=== PATIENT | female | born 1960 | race Caucasian/White ===

== ENCOUNTER 2019-09-20 07:43 | Outpatient (CLI) | payer OTHER, SELFPAY ==
--- NOTE | ~2019-09-20 | MM_ITS ---
EXAMINATION: MM screening [facility] BI w vy HISTORY: Screening mammogram, history of right breast cancer TECHNIQUE: Craniocaudal and mediolateral oblique 3-D tomosynthesis images were obtained and synthetic 2-D images were generated. CAD analysis was submitted and interpreted. COMPARISON: 09/16/2018, 09/13/2017, 09/02/2016 BREAST PARENCHYMAL COMPOSITION: There are scattered areas of fibroglandular density. FINDINGS: Stable lumpectomy changes are present in the upper outer quadrant of the right breast. Ther e is no evidence of suspicious mass, calcification, or architectural distortion to suggest malignancy in either breast. There has been no suspicious interval change. IMPRESSION: 1. No mammographic evidence of malignancy. 2. Recommend routine screening mammography in one year. BI-RADS Category 2: Benign finding(s). Reviewed, dictated and finalized at location A.
== END 2019-09-20 07:44 | disposition home or self-care (01) ==
LOC: ANHIMG 07:47
PROVIDERS: PCP Family Medicine; Visit Provider Family Medicine
DX: Z12.31 Encounter for screening mammogram for malignant neoplasm of breast (principal)
CPT/HCPCS: 77063; 77067

== ENCOUNTER 2020-05-26 16:32 | Emergency (ER) | payer OTHER, SELFPAY ==
[2020-05-26 16:33] VITALS: BP 148/79; PULSE 81; RESP 18; TEMP 36.3; O2SAT 100
--- NOTE | 2020-05-26 17:17 | ED.WOUNDLAC ---
HPI - Wound/Laceration General Chief Complaint: Wound/Laceration Stated Complaint: laceration to left 2nd finger Time Seen by Provider: 05/26/20 16:58 Source: patient Mode of arrival: ambulatory Limitations: no limitations History of Present Illness HPI narrative: 60-year-old lady comes into the emergency department today with complaints of a finger laceration. Patient states that she was trying to cut some fat off of a steak when the knife slipped and got her left index finger. States that her sensation is still intact, denies any further injuries. Patient states that her tetanus is up-to-date as she is fairly certain she has had it within the last 6 to 7 years. Related Data Allergies Allergy/AdvReac Type Severity Reaction Status Date / Time No Known Allergies Allergy Unverified 05/26/20 16:35 Review of Systems Review of Systems: Narrative: CONSTITUTIONAL: Denies fever, chills, or sweats. EYES: Denies visual changes, redness, or discharge. ENT: Denies rhinorrhea, congestion, sore throat, or otalgia. CARDIOVASCULAR: Denies chest pain, palpitations, or edema. RESPIRATORY: Denies cough or dyspnea. GASTROINTESTINAL: Denies abdominal pain, nausea, vomiting, or diarrhea. GENITOURINARY: Denies dysuria or hematuria. SKIN: Denies rash or itching. MUSCULOSKELETAL: Denies back pain, joint pain, or myalgia. NEUROLOGIC: Denies headache, numbness, dizziness, or weakness. PSYCHIATRIC: Denies anxiety or depression. PMFSH Family History Family History Other Depression Family history of arthritis Social History Social History Smoking status: Never smoker Alcohol intake: never Gender identity (if verbalized by the patient): Female Exam Narrative: Exam Narrative: GENERAL: Well-appearing, well-nourished, and in no acute distress. HEAD: Normocephalic, atraumatic. EYES: PERRLA and EOMI. ENT: Nares clear, no rhinorrhea or epistaxis. Mucous membranes moist. Oropharynx without tonsillar hypertrophy exudate or other lesions. Bilateral TMs pearly hooks nonbulging NECK: Supple. No adenopathy or masses. No carotid bruits or JVD CHEST: Clear to auscultation. No respiratory distress. No wheezes rales or rhonchi HEART: Regular rate and rhythm. No murmur heard. Normal peripheral pulses. ABDOMEN: Soft, nontender, nondistended, normal active bowel sounds. EXTREMITIES: Normal range of motion. No edema. 3 cm laceration on the medial aspect of the left index finger SKIN: Warm, dry, no rash. NEURO: No focal deficits. Alert and oriented x3. PSYCH: Normal mood and affect. Course Vital Signs Vital signs: Vital Signs Temperature 36.3 C L 05/26/20 16:33 Pulse Rate 81 05/26/20 16:33 Respiratory Rate 18 05/26/20 16:33 Blood Pressure 148/79 H 05/26/20 16:33 Pulse Oximetry 100 05/26/20 16:33 Temperature 36.3 C L 05/26/20 16:33 Pulse Rate 81 05/26/20 16:33 Respiratory Rate 18 05/26/20 16:33 Blood Pressure 148/79 H 05/26/20 16:33 Pulse Oximetry 100 05/26/20 16:33 Procedures Laceration Laceration 1: Site: hand Side (If applicable): left Size (cm): 3 Description: linear Depth: simple, single layer Local Anesthetic: lidocaine 1% Amount of anesthesia used (mL): 4 ====== Skin Level ====== Skin layer closed with: nylon Size (cm): 5-0 Number of sutures: 5 Technique: simple, interrupted ====== Subcutaneous Layer ====== ====== Muscle Layer ====== ====== Tendon Layer ====== MDM - Wound/Laceration MDM Narrative Medical decision making narrative: In brief this 60-year-old lady came into the emergency department with complaints of a simple laceration. Wound was irrigated, digital nerve block instilled. Patient tolerated sutures well. She in total she had 5 stitches. Patient did not need a tetanus booster at this t
--- NOTE | 2020-05-26 17:59 | PC.NURSE ---
antibotic ointment and bandade applied to wound
[2020-05-26 18:00] VITALS: BP 138/78; PULSE 78; RESP 18; O2SAT 99
== END 2020-05-26 18:01 | disposition home or self-care (01) ==
PROVIDERS: Emergency Provider Emergency Medicine; PCP Family Medicine
DX: S61.211A Laceration without foreign body of left index finger without damage to nail, initial encounter (principal); W26.0XXA Contact with knife, initial encounter; Y93.G1 Activity, food preparation and clean up
CPT/HCPCS: 12001; 99282

== ENCOUNTER 2020-07-15 09:17 | Outpatient (CLI) | payer OTHER, SELFPAY | END 2020-07-15 09:18 | disposition home or self-care (01) | LOC: ANHCOVIDVC 09:17 | PROVIDERS: PCP Family Medicine | DX: Z23 Encounter for immunization (principal) | CPT/HCPCS: 0001A; 91300 ==

== ENCOUNTER 2020-08-05 09:14 | Outpatient (CLI) | payer OTHER, SELFPAY | END 2020-08-05 09:15 | disposition home or self-care (01) | LOC: ANHCOVIDVC 09:14 | PROVIDERS: PCP Family Medicine | DX: Z23 Encounter for immunization (principal) | CPT/HCPCS: 0002A; 91300 ==

== ENCOUNTER 2020-11-13 07:52 | Outpatient (CLI) | payer OTHER, SELFPAY ==
--- NOTE | ~2020-11-13 | MM_ITS ---
EXAMINATION: MM screening [facility] BI w vy HISTORY: Screening TECHNIQUE: Craniocaudal and mediolateral oblique 3-D tomosynthesis images were obtained and synthetic 2-D images were generated. CAD analysis was submitted and interpreted. COMPARISON: Comparison to multiple prior studies sequentially, with oldest reviewed study dated 04/29. BREAST PARENCHYMAL COMPOSITION: There are scattered areas of fibroglandular density. FINDINGS: Stable lumpectomy changes of the right breast. There is no evidence of suspicious mass, rehan cification, or architectural distortion to suggest malignancy in either breast. There has been no reyna picious interval change. IMPRESSION: 1. No mammographic evidence of malignancy. 2. Recommend routine screening mammography in one year. BI-RADS Category 1: Negative Reviewed, dictated and finalized at location A.
== END 2020-11-13 07:53 | disposition home or self-care (01) ==
LOC: ANHIMG 07:53
PROVIDERS: PCP Family Medicine; Visit Provider Family Medicine
DX: Z12.31 Encounter for screening mammogram for malignant neoplasm of breast (principal)
CPT/HCPCS: 77063; 77067

== ENCOUNTER → 2021-07-07 07:53 | Outpatient (CLI) | payer OTHER, SELFPAY ==
--- NOTE | ~2021-07-07 | US_ITS ---
EXAMINATION: US right upper quadrant EXAM DATE: 07/07/2021 08:13 INDICATION: Epigastric pain, abdominal bloating. TECHNIQUE: Multiple grayscale and Doppler images of the abdomen right upper quadrant were obtained (b y a technologist who performed the scan) and subsequently reviewed. There is no prior study for areli lilly. FINDINGS: The pancreatic head and body are normal in appearance. The pancreatic tail is not visualized. There is echogenic liver parenchyma, hepatic steatosis. There are no focal liver lesions identified. Th ere is no evidence of intrahepatic biliary duct dilation. Portal venous flow was seen in the hepatop edal, normal direction and has normal Doppler waveform. No right-sided hydronephrosis. Common bile duct measures 4 mm, which is normal. The gallbladder wall is normal in thickness, with ex pected amount of distention. No sonographic evidence of pericholecystic fluid. There is no cholelit hiases. Technologist performing exam reports patient did not demonstrate sonographic Higgins's sign. Please note that this sign is less reliable in patients who have received pain medication. IMPRESSION: Hepatic steatosis. Reviewed, dictated and finalized at location A. IMPRESSION: Hepatic steatosis.
== END ==
PROVIDERS: PCP Family Medicine; Visit Provider Family Medicine
DX: R10.13 Epigastric pain (principal); K76.0 Fatty (change of) liver, not elsewhere classified
CPT/HCPCS: 76705

== ENCOUNTER 2021-07-16 07:24 | Outpatient (CLI) | payer OTHER, SELFPAY ==
--- NOTE | ~2021-07-16 | NM_ITS ---
EXAMINATION: NM hepatobiliary wo pharm DATE: 07/16/2021 09:53 INDICATION: Epigastric abdominal pain. COMPARISON: Ultrasound 07/07/2021 TECHNIQUE: 5 mCi Tc-99m mebrofenin (Choletec) was administered intravenously. Scintigraphic images o f the abdomen were obtained for one hour. Then, the patient drank 8 oz Ensure, and imaging was contin ued for 60 minutes. FINDINGS: There is normal clearance of radiotracer from the blood pool. There is homogeneous tracer u ptake by the liver. Activity progresses to the bowel and gallbladder. Gallbladder ejection fraction (GBEF) was 51%. Note that with this technique, normal GBEF >= 33%. IMPRESSION: 1. Normal hepatobiliary scintigraphy. Reviewed, dictated and finalized at location A.
== END 2021-07-16 07:25 | disposition home or self-care (01) ==
PROVIDERS: PCP Family Medicine; Visit Provider Family Medicine
DX: R10.13 Epigastric pain (principal)
CPT/HCPCS: 78226; A9537

== ENCOUNTER 2022-02-18 13:48 | Outpatient (CLI) | payer OTHER, SELFPAY ==
--- NOTE | ~2022-02-18 | MM_ITS ---
EXAMINATION: MM screening [facility] BI w vy HISTORY: Screening TECHNIQUE: Craniocaudal and mediolateral oblique 3-D tomosynthesis images were obtained and synthetic 2-D images were generated. CAD analysis was submitted and interpreted. COMPARISON: Comparison to multiple prior studies sequentially, with oldest reviewed study dated 05/27. BREAST PARENCHYMAL COMPOSITION: Comparison to multiple prior studies sequentially, with oldest review ed study dated 04/29/2015. FINDINGS: There is distortion of the right breast in the upper outer quadrant consistent with previou s lumpectomy site. There is no evidence of suspicious mass, calcification, or architectural distortio n to suggest malignancy in either breast. There has been no suspicious interval change. IMPRESSION: 1. No mammographic evidence of malignancy. 2. Recommend routine screening mammography in one year. BI-RADS Category 1: Negative Reviewed, dictated and finalized at location A. [employer]
== END 2022-02-18 13:49 | disposition home or self-care (01) ==
PROVIDERS: PCP Family Medicine; Visit Provider Family Medicine
DX: Z12.31 Encounter for screening mammogram for malignant neoplasm of breast (principal)
CPT/HCPCS: 77063; 77067

== ENCOUNTER 2023-04-07 02:05 | Day surgery (SDC) | payer OTHER, SELFPAY ==
[2023-03-11 13:56] VITALS: BMI 27.8
--- NOTE | 2023-04-02 12:27 | SUR.PREOP ---
Patient called regarding upcoming procedure. Reviewed preop instructions, appointment times, and procedure prep.
--- NOTE | 2023-04-05 15:50 | PM.HPGS ---
History of Present Illness History of Present Illness Consent: Risks, benefits, and alternatives have been discussed and questions answered. Patient agrees to proceed with procedure. Chief complaint: neoplasm screening, screening for neoplasm of rect Narrative: Eugenie West is a 63 year old female who is referred for colon cancer screening. Review of Systems Review of Systems: All systems reviewed & are unremarkable except as noted in HPI and below PMFSH Past Medical History Medical History Allergic rhinitis History of breast cancer Surgical History Surgical History History of section 1987, 1990 History of lumpectomy of right breast History of total abdominal hysterectomy and bilateral salpingo-oophorectomy 01/27/2013 Family History Family History Father Diabetes mellitus Emphysema of lung Mother Gallbladder cancer Grandparent Cerebrovascular accident Alcoholism Meningitis Social History Social History Smoking status: Never smoker Second hand tobacco smoke exposure: No Alcohol intake: never Substance use: never Substance use type: does not use Lack of Transportation: No Lack of Food: Never True Current Housing: I Have Housing Concerned About Future Housing: No Difficulty Paying Gas/Electric Bills: No Difficulty Paying for Meds: No Currently Unemployed: No Education: High School Diploma/GED Difficulty w/ Childcare or Family Care: No Living arrangements: with family Occupation/Education: retired Gender identity (if verbalized by the patient): Female Sexual Orientation (if Verbalized by the Patient): Straight or Heterosexual Spiritual care concerns: No Meds Home Medications and Allergies Home Medications Medication Instructions Recorded Confirmed Type montelukast 10 mg tablet 10 mg PO DAILY #90 tabs 06/18/22 04/07/23 Rx cetirizine 10 mg tablet (Zyrtec) 10 mg PO DAILY PRN Allergy Symptoms 07/06/22 04/07/23 History multivitamin 1 tablet PO DAILY 07/06/22 04/07/23 History amoxicillin 875 mg-potassium 1 tablet PO BID #20 tabs 04/01/23 04/07/23 Rx clavulanate 125 mg tablet fluticasone propionate 50 2 spray intranasal DAILY #16 grams 04/01/23 04/07/23 Rx mcg/actuation nasal spray,suspension Allergies Allergy/AdvReac Type Severity Reaction Status Date / Time No Known Allergies Allergy Verified 04/07/23 06:24 Exam Resp: Auscultation: clear to auscultation bilaterally Cardio: Rate: regular rate Rhythm: regular rhythm GI: GI Palp: Yes Soft to palpation and No Tenderness to palpation present (GI) Assessment and Plan Assessment and plan (1) Colon cancer screening: Code(s): Z12.11 - Encounter for screening for malignant neoplasm of colon Status: Acute Assessment and Plan: Colonoscopy with possible biopsy or polypectomy or cautery or injection of substances.
[2023-04-07 06:15] VITALS: BP 135/81; PULSE 78; RESP 18; TEMP 35.8; O2SAT 100; BMI 26.8
[2023-04-07] MEDS: LACTATED RINGERS 1,000 ML 150 ML IV CONT (06:38)
--- NOTE | 2023-04-07 07:19 | WPDANESEPPF ---
Anes - Initial Pre Proc Eval Procedure: Operation Date: 04/07/23 07:30 Proposed Procedures p Screening Colonoscopy - Woodrow James MD Date/Time: 04/07/23 07:19 Surgeon: Woodrow James MD Pre Op Diagnosis: neoplasm screening, screening for neoplasm of rect Patient Data Age: 63 Gender: F Height: 1.57 m Weight: 66.5 kg Last Vital Signs Temp 96.5 F L 04/07/23 06:15 Pulse 78 04/07/23 06:15 Resp 18 04/07/23 06:15 BP 135/81 04/07/23 06:15 Pulse Ox 100 04/07/23 06:15 O2 Del Method Room Air 04/07/23 06:15 Allergies Allergy/AdvReac Type Severity Reaction Status Date / Time No Known Allergies Allergy Verified 04/07/23 06:24 Home Medications Medication Instructions Recorded Confirmed Type montelukast 10 mg tablet 10 mg PO DAILY #90 tabs 06/18/22 04/07/23 Rx cetirizine 10 mg tablet (Zyrtec) 10 mg PO DAILY PRN Allergy Symptoms 07/06/22 04/07/23 History multivitamin 1 tablet PO DAILY 07/06/22 04/07/23 History amoxicillin 875 mg-potassium 1 tablet PO BID #20 tabs 04/01/23 04/07/23 Rx clavulanate 125 mg tablet fluticasone propionate 50 2 spray intranasal DAILY #16 grams 04/01/23 04/07/23 Rx mcg/actuation nasal spray,suspension Patient hx anesthesia problems: none Family hx anesthesia problems: none Results Review: All pre-operative results and documents have been reviewed as part of the pre-operative evaluation. [facility] Past Medical History Medical History Allergic rhinitis History of breast cancer Surgical History Surgical History History of section 1987, 1990 History of lumpectomy of right breast History of total abdominal hysterectomy and bilateral salpingo-oophorectomy 01/27/2013 Family History Family History Father Diabetes mellitus Emphysema of lung Mother Gallbladder cancer Grandparent Cerebrovascular accident Alcoholism Meningitis Social History Social History Smoking status: Never smoker Second hand tobacco smoke exposure: No Alcohol intake: never Substance use: never Substance use type: does not use Lack of Transportation: No Lack of Food: Never True Current Housing: I Have Housing Concerned About Future Housing: No Difficulty Paying Gas/Electric Bills: No Difficulty Paying for Meds: No Currently Unemployed: No Education: High School Diploma/GED Difficulty w/ Childcare or Family Care: No Living arrangements: with family Occupation/Education: retired Gender identity (if verbalized by the patient): Female Sexual Orientation (if Verbalized by the Patient): Straight or Heterosexual Spiritual care concerns: No Anes - Eval Final PreProcedure Day of Procedure 04/07/23 07:19 Patient weight: normal Heart: regular rate and rhythm Lungs: clear to auscultation Airway: Mallampati scale class II Neurological: alert and oriented Last oral intake: >/= 8 hours ASA classification: II Emergent: no Anesthetic plan: proceed Anesthesia type and monitoring: general GIVS and standard monitoring Results Review: All pre-operative results and documents have been reviewed as part of the pre-operative evaluation. Informed Consent: The patient's anesthetic plan and its attendant risks and benefits were discussed with the patient/family/POA. Questions were solicited and answers provided to the satisfaction of the patient/family/POA.
[2023-04-07 07:45] VITALS: BP 103/58; PULSE 64; RESP 17; O2SAT 100
[2023-04-07 07:55] VITALS: BP 99/59; PULSE 63; RESP 17; O2SAT 100
[2023-04-07 08:05] VITALS: BP 124/64; PULSE 64; RESP 17; O2SAT 100
== END 2023-04-07 08:15 | disposition home or self-care (01) ==
PROVIDERS: PCP Family Medicine; Visit Provider Internal Medicine Gastroenterology
PROC: 0DJD8ZZ Inspection of Lower Intestinal Tract, Via Natural or Artificial Opening Endoscopic (ICD-10-PCS; CPT 45378; principal; 2023-04-07 07:30)
DX: Z12.11 Encounter for screening for malignant neoplasm of colon (principal); K64.8 Other hemorrhoids; K57.30 Diverticulosis of large intestine without perforation or abscess without bleeding; Z85.3 Personal history of malignant neoplasm of breast; Z80.0 Family history of malignant neoplasm of digestive organs; Z82.49 Family history of ischemic heart disease and other diseases of the circulatory system
CPT/HCPCS: 45378; J2704; J7120

== ENCOUNTER 2023-04-21 14:42 | Outpatient (CLI) | payer OTHER, SELFPAY ==
--- NOTE | ~2023-04-21 | US_ITS ---
EXAMINATION: US axilla RT DATE: 04/21/2023 15:49 INDICATION: Right axillary lump TECHNIQUE: Multiple grayscale and Doppler ultrasound images of the right axilla were obtained. COMPARISON: None FINDINGS/IMPRESSION: Normal appearance to the subcutaneous fat and underlying muscles and vascular structures at the right axilla. No abnormal masses, pathologically enlarged lymph nodes or fluid collections identified. Reviewed, dictated and finalized at location A. IC [employer]LOOR [employer]ER
== END 2023-04-21 14:43 | disposition home or self-care (01) ==
PROVIDERS: PCP Family Medicine; Visit Provider Obstetrics & Gynecology
DX: N63.31 Unspecified lump in axillary tail of the right breast (principal); Z86.000 Personal history of in-situ neoplasm of breast
CPT/HCPCS: 76882

== ENCOUNTER 2023-04-22 13:13 | Outpatient (CLI) | payer OTHER, SELFPAY ==
--- NOTE | ~2023-04-22 | MM_ITS ---
EXAMINATION: MM diagnostic [facility] BI w vy HISTORY: Palpable left axillary abnormality TECHNIQUE: Additional 3-D tomosynthesis images of the breasts were performed and synthetic 2-D images were generated. CAD analysis was submitted and interpreted. COMPARISON: Comparison to multiple prior studies sequentially, with oldest reviewed study dated 09/13. BREAST PARENCHYMAL COMPOSITION: Breast composed of scattered areas of fibroglandular density FINDINGS: The breasts are stable. Stable architectural distortion in the upper outer quadrant of the right breast consistent with previous lumpectomy site. No new masses, calcifications or architectural distortion in either breast to suggest malignancy. IMPRESSION: 1. No evidence for malignancy in either breast. 2. Routine yearly screening mammogram and regular clinical breast examination are recommended. BI-RADS Category 2: Benign finding(s). Reviewed, dictated and finalized at location A. W[employer] QUALITY SPECIALIST IMPRESSION: 1. No evidence for malignancy in either breast. 2. Routine yearly screening mammogram and regular clinical breast examination a re recommended. BI-RADS Category 2: Benign finding(s).
== END 2023-04-22 13:14 | disposition home or self-care (01) ==
LOC: ANHIMG 13:14
PROVIDERS: PCP Family Medicine; Visit Provider Obstetrics & Gynecology
DX: Z86.000 Personal history of in-situ neoplasm of breast (principal)
CPT/HCPCS: 77062; 77066; G0279

== ENCOUNTER 2023-06-10 14:32 | Outpatient (CLI) | payer OTHER, SELFPAY ==
--- NOTE | ~2023-06-10 | MR_ITS ---
EXAMINATION: MR abdomen wo/w con DATE: 06/10/2023 15:53 INDICATION: Other specified diseases of pancreas. TECHNIQUE: Magnetic resonance imaging (MRI) of the abdomen was performed without and with 14 mL Multi Dong intravenous contrast. COMPARISON: Abdomen ultrasound 07/07/2021 FINDINGS: There is diffuse hepatic steatosis. The gallbladder, spleen, pancreas, adrenal glands, and kidneys ar e normal. There are no dilated loops of bowel. There are no pathologically enlarged lymph nodes. Ther e is no free intraperitoneal fluid. IMPRESSION: 1. Normal pancreas. 2. Diffuse hepatic steatosis. Reviewed, dictated and finalized at location E. [employer]
== END 2023-06-10 14:33 | disposition home or self-care (01) ==
LOC: ANHIMG 14:33
PROVIDERS: PCP Family Medicine; Visit Provider Physician Assistant
DX: K86.89 Other specified diseases of pancreas (principal); K76.0 Fatty (change of) liver, not elsewhere classified
CPT/HCPCS: 74183; A9577

== ENCOUNTER 2024-01-20 09:43 | Emergency (ER) | payer OTHER, SELFPAY ==
--- NOTE | ~2024-01-20 | XR_ITS ---
EXAMINATION: XR chest 2V 01/20/2024 10:30 INDICATION: Productive cough. Shortness of breath. PROCEDURE: 2 view chest COMPARISON: 07/16/2017 FINDINGS: The lungs are clear. The cardiomediastinal silhouette is within normal limits. There are no pleural effusions. There is no pneumothorax suspected. IMPRESSION: 1: NO ACUTE CARDIOPULMONARY DISEASE. Reviewed, dictated and finalized at location B.
[2024-01-20 10:00] VITALS: BP 143/88; PULSE 86; RESP 15; TEMP 36.8; O2SAT 99
--- NOTE | 2024-01-20 10:20 | ED.URI ---
HPI - URI/Sore Throat General Chief Complaint: Upper Respiratory Infection Stated Complaint: coughing Time Seen by Provider: 01/20/24 10:14 Source: patient, RN notes reviewed and old records reviewed Mode of arrival: ambulatory Limitations: no limitations History of Present Illness HPI Narrative: 63 year old female who presents to [facility] with complaints productive cough for the past 4 days with headache and some stated STACY. Patient reports that she took care of her grandson last week who was diagnosed with pneumonia and is concerned she may have gotten ill from him. Patient reports that she has been taking Mucinex and also OTC severe cold and flu medications. Patient denies any known fevers, chills or sweats or body aches MD elicited complaint: cough Onset (ago): day(s) (4) Severity: moderate Able to tolerate fluids by mouth: Yes Treatments prior to arrival: other (Mucinex and cold and flu medication) Related Data Home Medications Medication Instructions Recorded Confirmed cetirizine 10 mg tablet (Zyrtec) 10 mg PO DAILY PRN Allergy Symptoms 07/06/22 01/20/24 multivitamin 1 tablet PO DAILY 07/06/22 01/20/24 Allergies Allergy/AdvReac Type Severity Reaction Status Date / Time No Known Allergies Allergy Verified 01/20/24 10:14 Review of Systems Review of Systems: CONSTITUTIONAL: Reports malaise, no chills, sweats, or fever. EYES: Denies visual changes, redness, or discharge. ENT: Reports rhinorrhea, congestion, sinus pain, no otalgia and no sore throat. CARDIOVASCULAR: Denies chest pain, palpitations, or edema. RESPIRATORY: Reports productive cough.? states some dyspnea with exertion GASTROINTESTINAL: Denies abdominal pain, nausea, vomiting, diarrhea SKIN: Denies rash or itching. MUSCULOSKELETAL: Denies myalgia. NEUROLOGIC: Reports some headache. All systems reviewed & are unremarkable except as noted in HPI and below PMFSH Past Medical History Medical History Allergic rhinitis History of breast cancer Surgical History Surgical History History of section 1987, 1990 History of lumpectomy of right breast History of total abdominal hysterectomy and bilateral salpingo-oophorectomy 01/27/2013 Family History Family History Father Diabetes mellitus Emphysema of lung Mother Gallbladder cancer Grandparent Cerebrovascular accident Alcoholism Meningitis Social History Social History Smoking status: Never smoker Second hand tobacco smoke exposure: No Alcohol intake: never Substance use: never Substance use type: does not use Do You Feel Safe in your Home?: Yes Lack of Transportation: No Lack of Food: Never True Current Housing: I Have Housing Concerned About Future Housing: No Difficulty Paying Gas/Electric Bills: No Difficulty Paying for Meds: No Currently Unemployed: No Education: High School Diploma/GED Difficulty w/ Childcare or Family Care: No Living arrangements: with family Occupation/Education: retired Gender identity (if verbalized by the patient): Female Sexual Orientation (if Verbalized by the Patient): Straight or Heterosexual Spiritual care concerns: No Comments At time of signature, agree with nursing past medical, surgical, social and family history. There is no relevant family history pertinent to the presenting complaint Exam Narrative: GENERAL: Well-appearing, well-nourished, and in no acute distress. HEAD: Normocephalic EYES: PERRLA, conjunctivae clear ENT: Nares clear, turbinates edematous and erythematous, clear discharge. Mucous membranes moist. TM pearly hooks with dull light reflex bilaterally; no tragal tenderness. Oropharynx erythematous without lesions. Tonsils not enlarged and
== END 2024-01-20 11:24 | disposition home or self-care (01) ==
PROVIDERS: Emergency Provider Registered Nurse; PCP Family Medicine
DX: J06.9 Acute upper respiratory infection, unspecified (principal); Z85.3 Personal history of malignant neoplasm of breast; Z90.11 Acquired absence of right breast and nipple
CPT/HCPCS: 71046; 99213; G0463

== ENCOUNTER 2024-08-08 07:20 | Outpatient (CLI) | payer OTHER, SELFPAY ==
--- NOTE | ~2024-08-08 | MM_ITS ---
EXAMINATION: MM screening [facility] BI w vy HISTORY: Screening TECHNIQUE: Craniocaudal and mediolateral oblique 3-D tomosynthesis images were obtained and synthetic 2-D images were generated. CAD analysis was submitted and interpreted. COMPARISON: Comparison to multiple prior studies sequentially, with oldest reviewed study dated 09/13. BREAST PARENCHYMAL COMPOSITION: Not dense: There are scattered areas of fibroglandular density. FINDINGS: There are stable lumpectomy changes in the upper outer quadrant of the right breast posteri gurdeep. There are benign breast calcifications bilaterally. There is no evidence of suspicious mass, ca lcification, or architectural distortion to suggest malignancy in either breast. There has been no rodriguez spicious interval change. IMPRESSION: 1. No mammographic evidence of malignancy. 2. Recommend routine screening mammography in one year. BI-RADS Category 2: Benign finding(s). Reviewed, dictated and finalized at location A.
--- OUTSIDE RECORDS SUMMARY | 2024-08-08 07:32 | XMS_ITS | Clinical Summary ---
Author Organization [facility] Address [address] [place] [address] Care Team Providers Care Customer Complaint Service Supervisor Name Role Phone Sidney Dubon MD Primary Care Provider [phone] Allergies No known active allergies Medications ondansetron (ZOFRAN-ODT) 4 MG disintegrating tablet Take 1 tablet (4 mg total) by mouth every 8 (eight) hours as needed for Nausea. 20 tablet 4 Active dicyclomine (BENTYL) 20 MG tablet Take 1 tablet (20 mg total) by mouth every 6 (six) hours. 30 tablet 4 Active HYDROcodone-acetami nophen (NORCO) 5-325 MG tabletIndications:A cute Pain < 7 Day Supply Take 1 tablet by mouth every 6 (six) hours as needed. Indications : Acute Pain < 7 Day Supply 12 tablet 4 Active Social History Tobacco Use Types Packs/Day Years Used Date Smoking Tobacco: Never Smokeless Tobacco: Never Tobacco Cessation:Counseling Given: Not Answered Comments Unknown Sex and Gender Information Value Date Recorded Sex Assigned at Not on file Legal Sex Female 10:01 AM TEST AND TURN UP TECHNICIAN Gender Identity Not on file Sexual Orientation Not on file Last Filed Vital Signs Vital Sign Reading Time Taken Comments Blood Pressure 140/66 06/06/2023 1:49 PM TEST AND TURN UP TECHNICIAN Pulse 88 06/06/2023 1:49 PM TEST AND TURN UP TECHNICIAN Temperature 37.1 C (98.7 F) 06/06/2023 1:49 PM TEST AND TURN UP TECHNICIAN Respiratory Rate 18 06/06/2023 1:49 PM TEST AND TURN UP TECHNICIAN Oxygen Saturation 98% 06/06/2023 10:11 AM TEST AND TURN UP TECHNICIAN Inhaled Oxygen Concentration - - Weight 68 kg (150 lb) 06/06/2023 10:11 AM TEST AND TURN UP TECHNICIAN Height 165.1 cm (5' 5 ) 06/06/2023 10:11 AM TEST AND TURN UP TECHNICIAN Body Mass Index 24.96 06/06/2023 10:11 AM TEST AND TURN UP TECHNICIAN Plan of Treatment Health Maintenance Due Date Last Done Comments Colorectal Cancer Screening Colonoscopy (10 Years) 1961 Annual Physical 1964 Hepatitis C 1979 Mammogram Screening 2001 Pneumococcal Vaccine: 50+ Years (1 of 1 - PCV) 2011 Zoster Vaccines (1 of 2) 2011 COVID-19 Vaccine (3 - 2023-2 5 season) 2023 08/05/2020, 07/15/2020 DTaP, Tdap and Td Vaccines ( 2 - Td or Tdap) 02/07/2029 02/07/2019 RSV Immunization or 60+ Years Completed 03/18/2023 Meningococcal B Vaccine Aged Out No l onger eligible based on patient's age to complete this topic Meningococcal Vaccine Aged Out No felisha stephen eligible based on patient's age to complete this topic RSV Immunizations Under 20 Months Aged Out No longer eligible b ased on patient's age to complete this topic Insurance [employer] Care Teams Customer Complaint Service Supervisor Relationship Specialty Start Date End Date Sidney Dubon MD [address] [place] [place] [id number] PCP - General FAMILY PRACTICE 06/06/23
--- OUTSIDE RECORDS SUMMARY | 2024-08-08 07:32 | XMS_ITS | Clinical Summary ---
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 Immunizations Immunization Administration Dates Next Due Influenza, Unspecified 01/03/2018 Social History Tobacco Use Types Packs/Day Years Used Date Smoking Tobacco: Never Smokeless Tobacco: Never Personal Safety Answer Date Recorded Getting School Help Needed Not on file 06/19 Comments Unknown Sex and Gender Information Value Date Recorded Sex Assigned at Not on file Legal Sex Female 4:05 PM CDT Gender Identity Not on file Sexual Orientation Not on file Obstetrics History Last Filed Vital Signs Vital Sign Reading Time Taken Comments Blood Pressure 143/89 08/12/2018 9:37 AM CDT Pulse 69 08/12/2018 9:37 AM CDT Temperature - - Respiratory Rate - - Oxygen Saturation 99% 08/12/2018 9:37 AM CDT Inhaled Oxygen Concentration - - Weight 67.3 kg (148 lb 6.4 oz) 08/12/2018 9:37 A M CDT Height 157.5 cm (5' 2 ) 08/12/2018 9:37 AM CDT Body Mass Index 27.14 08/12/2018 9:37 AM CDT Plan of Treatment Not on file Insurance [place] [id number] [place] Care Teams Centrifugal Spinner Relationship Specialty Start Date End Date Sidney Dubon MD [address] [facility] [place] [address] PCP - General 07/06/17 Sidney Dubon MD [address] [facility] [address] Family Medicine 07/06/17
--- OUTSIDE RECORDS SUMMARY | 2024-08-08 07:32 | XMS_ITS | Referral Summary ---
Author Organization [facility] [address] Address [address] [place] [address] Care Team Providers Care Woods Overseer Name Role Phone Sidney Dubon MD Primary Care Provider [phone] Sidney Dubon MD Unavailable [phone] Allergies No known active allergies Medications [...] Plan of Treatment Not on file [place] [id number] AN[place] [employer] [place] Care Teams Woods Overseer Relationship Specialty Start Date End Date Sidney Dubon MD [address] [place] [address] PCP - General 07/06/17 Sidney Dubon MD [address] [facility] [place] [address] Family Medicine 07/06/17
== END 2024-08-08 07:21 | disposition home or self-care (01) ==
PROVIDERS: PCP Family Medicine; Visit Provider Family Medicine
DX: Z12.31 Encounter for screening mammogram for malignant neoplasm of breast (principal); Z85.3 Personal history of malignant neoplasm of breast
CPT/HCPCS: 77063; 77067

== ENCOUNTER 2025-03-20 09:03 | Outpatient (CLI) | payer OTHER, SELFPAY ==
--- NOTE | 2025-03-20 | ECG_ITS ---
Test Date: 2025-03-20 09:37:01 Measurements Intervals [place] Rate: 63 P: 48 NC: 143 QRS: -8 QRSD: 83 T: 22 QT: 387 QTc: 396 Interpretive Statements SINUS RHYTHM NORMAL ECG No previous ECG available for comparison Electronically Signed On 03-20-2025 09:41:44 GENERAL MAINTENANCE HELPER by Francisco Montiel D.O.
--- OUTSIDE RECORDS SUMMARY | 2025-03-20 09:54 | XMS_ITS | Clinical Summary ---
Author Organization [facility] [address] Address [address] [place] [address] Care Team Providers Care Solid Die Cutter Name Role Phone Sidney Dubon MD Primary Care Provider [phone] Sidney Dubon MD Unavailable [phone] Allergies No known active allergies Medications [...] A M CDT Height 157.5 cm (5' 2) 08/12/2018 9:37 AM CDT Body Mass Index 27.14 08/12/2018 9:37 AM CDT Plan of Treatment Not on file Insurance ANTH TRADITIONAL Member Subscriber Plan / Payer ( fective 2017-Present) Name:Eugenie Garcia Relation to Subscriber:Spouse Name:JAIME GARCIA Date of :1957 (Home) Address: [address] [place] [address] Payer ID:[id number] (NAIC) Type:[facility] Address: [address] [place] [address] [place] [address] ANTH ACCESS Member Subscriber Plan / Payer ( fective 2001-Present) Name:Eugenie Garcia Relation to Subscriber:Spouse Name:JAIME GARCIA Date of :1956 (Home) Address: [address] [place] [address] Payer ID:[id number] (NAIC) Type:[facility] Address: [address] [place] [address] [employer] [place] Care Teams Solid Die Cutter Relationship Specialty Start Date End Date Sidney Dubon MD [address] [place] [address] PCP - General 07/06/17 Sidney Dubon MD [address] [place] [address] Family Medicine 07/06/17
== END 2025-03-20 09:04 | disposition home or self-care (01) ==
PROVIDERS: PCP Family Medicine; Visit Provider Podiatrist Foot & Ankle Surgery
DX: Z01.818 Encounter for other preprocedural examination (principal)
CPT/HCPCS: 93005

== ENCOUNTER 2025-03-21 07:30 | Outpatient (CLI) | payer OTHER, SELFPAY ==
[2025-03-21 08:07] LABS: Alanine Aminotransferase 16 U/L (6-35); Albumin Level 4.1 g/dL (3.5-5.1); Alkaline Phosphatase 83 U/L (38-126); Anion Gap 7 mmol/L (4-12); Aspartate Amino Transferase 26 U/L (14-36); Bilirubin,Total 0.5 mg/dL (0.2-1.3); Blood Urea Nitrogen 13 mg/dL (7-17); Calcium 9.1 mg/dL (8.4-10.2); Carbon Dioxide 26 mmol/L (22-30); Chloride 106 mmol/L (98-107); Estimated Glomerular Filt Rate > 60; Glucose 88 mg/dL (65-110); Potassium 4.1 mmol/L (3.4-5.0); Sodium 139 mmol/L (137-145); Total Protein 7.2 g/dL (6.3-8.2)
== END 2025-03-21 07:31 | disposition home or self-care (01) ==
LOC: ANHLAB 07:32
PROVIDERS: PCP Family Medicine; Visit Provider Podiatrist Foot & Ankle Surgery
DX: Z01.818 Encounter for other preprocedural examination (principal)
CPT/HCPCS: 36415; 80053